=== PATIENT | male | born 1975 ===

== ENCOUNTER 2020-07-29 14:34 | Outpatient (REF) | payer OTHER, SELFPAY ==
[2020-07-29 15:37] LABS: COVID-19 Test Negative (Negative)
== END 2020-07-29 14:35 | disposition home or self-care (01) ==
LOC: HO.LAB 14:34
PROVIDERS: Visit Provider Internal Medicine
DX: Z20.822 Contact with and (suspected) exposure to COVID-19 (principal)
CPT/HCPCS: 36415; 87635; C9803

== ENCOUNTER 2023-07-10 14:55 | Emergency (ER) | payer OTHER, SELFPAY ==
[2023-07-10 14:59] VITALS: BP 179/102; PULSE 99; RESP 20; TEMP 37.2; O2SAT 99; BMI 38.6
--- NOTE | 2023-07-10 15:02 | ED.GENADULT ---
HPI - General Adult General Chief complaint: Allergic Reaction Stated complaint: Allergic reaction Time Seen by Provider: 07/10/23 15:07 Source: patient Mode of arrival: ambulatory Limitations: no limitations History of Present Illness HPI narrative: 48-year-old male history of hypertension, hyperlipidemia, obesity presents with concerns of lower lip swelling that started at 09:00 this morning. Patient reports he is on lisinopril and has been taking it for years. This has never happened to him before. He reports his lower lip feels big and tight. No tingling in the tongue, difficulty swallowing, changes in voice, trouble controlling secretions, chest pain, shortness of breath, nausea, vomiting, abdominal pain. Related Data Allergies Allergy/AdvReac Type Severity Reaction Status Date / Time No Known Allergies Allergy Unverified 01/01/20 15:36 Review of Systems Review of Systems: Constitutional : No Weight loss, No Fever, No Chills, No Fatigue, No Malaise ENT/Mouth : No sore throat, No Rhinorrhea, + lip swelling Eyes: No Eye Pain, No Swelling, No Redness Cardiovascular : No Chest Pain, No SOB, No Dyspnea on Exertion, No Orthopnea, No Edema, No Palpitations Respiratory : No Cough, No Sputum, No Wheezing Gastrointestinal : No Nausea, No Vomiting, No Diarrhea, No Constipation, No abdominal Pain, No Hematochezia, No Melena Genitourinary : No Dysuria, No Urinary Frequency, No Hematuria, Musculoskeletal : No joint pain, No Myalgias, No Joint Swelling Skin : No Skin Lesions, No rash Neuro : No Weakness, No Numbness, No Dizziness, No Headache Psych : No Anxiety/Panic, No Depression All other systems reviewed and are negative Yes all other systems are reviewed and are negative [facility] Past Medical History Attestation statement: The following information was validated with the patient. Source: old records reviewed and nursing notes reviewed Social History Social History Alcohol intake: current Smoked in Last 30 Days: Yes Use of substances other than those prescribed or required for medical reasons: Yes Substance Use Type: Marijuana Advance Directives: No Advance Directives Information Provided: No Physical Exam ED Vital Signs: Vital Signs - 24 hr 07/10/23 18:15 07/10/23 18:19 Temperature 98.2 F 98.2 F Pulse Rate 93 93 Respiratory Rate 16 16 Blood Pressure 144/98 H 144/98 H Pulse Oximetry 96 96 Oxygen Delivery Method Room Air Room Air BMI result Body Mass Index 38.6 vss Appearance: Alert.? Oriented X3.? No acute distress.? Head: Normocephalic, atraumatic, no step-offs or deformities Eyes: Pupils equal, round and reactive to light.? ENT: Pharynx normal.??+ lower lip swelling. No tongue swelling, swelling to posterior pharynx, uvula, tongue. Speaking in full sentences controlling secretions well. Neck: Normal inspection.? Neck supple.? CVS: Normal heart rate and rhythm.? Pulses normal.? Respiratory: No respiratory distress.? Breath sounds normal.? Abdomen: Soft and nontender.? Skin: Skin warm and dry.? Normal skin color.? Normal skin turgor.? Extremities: No lower extremity edema.? No calf ttp. 5/5 strength to bilateral upper and lower extremities Neuro: Oriented X 3.? No motor deficit.? No sensory deficit. CN 2-12 intact Course Course Course Narrative: RME: 48-year-old male presents to the ED for angioedema which began around 09:00. Patient on lisinopril. Patient denies any known allergies. Solu-Medrol Benadryl Pepcid ordered. Patient to be brought to the ED Reevaluation(s) Reevaluation #1: sign out to [facility] [employer]OND [employer]IST[employer] Reevaluation #2: Angioedema remained stable, unchanged despite administration of Solu-Medrol/Benadryl/Pepcid IV. Speaking clear full sentences. No airway compromise. Discussed with patient extensively discontinuation of lisinopril. It is imperative that he contact his primary care doctor tomorrow to arrange for a follow-up appointment as he will need an alternative regimen for management of his hypertension. Discussed worrisome signs and symptoms that would warrant re-evaluation in the emergency department. All questions answered. Stable for discharge. Furthermore patient was evaluated by ED attending Dr. Serna who agrees with plan of care Time: 18:11 Medications Administered Discontinued Medications Generic Name Dose Route Start Last Admin Trade Name Freq PRN Reason Stop Dose Admin Diphenhydramine HCl 50 mg 07/10/23 15:01 07/10/23 15:19 Diphenhydramine Hcl 50 Mg/Ml Vial IVPUSH 07/10/23 15:02 50 mg ONCE ONE Administration Famotidine 20 mg 07/10/23 15:01 07/10/23 15:19 Famotidine/Pf 20 Mg/2 Ml Vial IVPUSH 07/10/23 15:02 20 mg ONCE ONE Administration Methylprednisolone Sodium Succinate 125 mg 07/10/23 15:01 07/10/23 15:19 Methylprednisolone Sod Succ 125 Mg/2 Ml Vial IVPUSH 07/10/23 15:02 125 mg ONCE ONE Administration Medical Decision Making Medical Decision Making MDM Narrative: 48 yo M presents w/ lower lip swelling since 0900 today. On lisinopril PE w/ + lower lip swelling. No tongue swelling, swelling to posterior pharynx, uvula, tongue. Speaking in full sentences controlling secretions well. History and physical exam concerning for EDIN induced angioedema versus allergic reaction. Unlikely anaphylactic reaction, no signs of threat to airway. Plan at this time will give IV meds and monitor. Differential Diagnosis Differential Diagnoses: The differential diagnosis associated with the presentation includes History and physical exam concerning for EDIN induced angioedema versus allergic reaction. Unlikely anaphylactic reaction, no signs of threat to airway. Admission/Observation Consideration of admission/observation: Escalation of care including admission/observation considered possible Chronic Conditions Patient?s care impacted by: Hypertension Critical Care Time Critical Care Time Critical Care Time: Yes Total Critical Care Time: 35 Attestation: I attest to this time spent taking care of the patient, obtaining history, physical, reviewing labs, imaging, speaking to my attending, speaking to specialist. Discharge Plan Discharge Clinical Impression: Angioedema Patient Disposition: Still a Patient Instructions: Angioedema (ED) Additional Instructions: It is important that you stop taking your lisinopril at this time. You need to call your doctor's office tomorrow morning 1st thing to schedule a follow-up appointment. Let them know that you were in the emergency department and you were advised to stop taking your lisinopril due to the swelling. Your primary care doctor will determine what medication changes they prefer for management of your high blood pressure. Return to the emergency department with new or worsening symptoms. Such as fevers, chills, chest pain, shortness of breath, nausea, vomiting, dizziness, headache, vision changes, lethargy In case of emergency call 911 Referrals: Dickson Hinson III, MD [Primary Care Provider] - 2 days Interventions: ED Discharge Assessment Last Done: 07/10/23 18:19 Discharge Date/Time: 07/10/23 18:48
[2023-07-10] MEDS: diphenhydrAMINE HCL 50 MG/ML VIAL IVPUSH (15:19)
[2023-07-10] MEDS: methylPREDNISolone Sod Succ 125 MG/2 ML VIAL IVPUSH (15:19)
[2023-07-10] MEDS: Famotidine/PF 20 MG/2 ML VIAL IVPUSH (15:19)
--- NOTE | 2023-07-10 15:28 | PC.NURSE ---
20gIV placed in the left hand - medication administered per provider order. no sob/wob noted. respirations even and unlabored. pt's airways open/intact. no signs of respiratory distress noted. severe lip swelling noted. effectiveness of medication pending. plan of care ongoing.
--- NOTE | 2023-07-10 17:47 | PC.NURSE ---
lip swelling still noted despite medication administration. airway remains patent. no sob/wob noted. respirations remain even and unlabored. plan of care ongoing.
[2023-07-10 18:15] VITALS: BP 144/98; PULSE 93; RESP 16; TEMP 36.8; O2SAT 96
--- NOTE | 2023-07-10 18:18 | PC.NURSE ---
pt spoke w/ ED provider at this time. pt aware of plan of care in regards to discontinuing lisinopril from medication regimen forever. vss and up to date prior to d/c.
[2023-07-10 18:19] VITALS: BP 144/98; PULSE 93; RESP 16; TEMP 36.8; O2SAT 96
== END 2023-07-10 18:48 | disposition still patient (30) ==
PROVIDERS: Emergency Provider Emergency Medicine; PCP Internal Medicine
DX: L50.0 Allergic urticaria (principal); R22.9 Localized swelling, mass and lump, unspecified
CPT/HCPCS: 96374; 96375; 99284; J1200; J2930

== ENCOUNTER 2024-01-09 11:23 | Emergency (ER) | payer OTHER, SELFPAY ==
--- NOTE | ~2024-01-09 | XR_ITS ---
EXAMINATION: XR HAND, LEFT CLINICAL INFORMATION: Injury to the thumb. COMPARISON: None available. TECHNIQUE: PA, lateral, and oblique views of the left hand. FINDINGS: First digit: There is soft tissue swelling of the thumb. No unexpected radiodense densities identified in the soft tissues. No air is seen in the soft tissues. No visible acute fracture or malalignment. Mild first MCP and CMC joint arthritis. Additional findings: Mild third MCP arthritis. No acute fracture is seen. No erosions. No abnormal soft tissue calcification. XR/XR hand LT min 3V IMPRESSION: Soft tissue swelling of the thumb. No radiographic evidence of acute fracture. No unexpected radiodense foreign bodies identified. Electronically signed by: Pineda Rahman MD 01/09/2024 01:02 PM EDT
[2024-01-09 11:30] VITALS: BP 201/124; PULSE 89; RESP 20; TEMP 37; O2SAT 98; BMI 35.8
--- NOTE | 2024-01-09 11:31 | ED_ITS ---
HPI - Wound/Laceration General Chief Complaint: Wound/Laceration Stated Complaint: l finger lac-work inj Time Seen by Provider: 01/09/24 15:17 Source: patient Mode of arrival: ambulatory Limitations: no limitations History of Present Illness ED Provider: Bertha Patel PA-C HPI narrative: 48 yo male presents with thumb laceration. At 1100 was at work using a machine with a belt, says that his thumb was sucked into the machine, shut off machine and removed thumb. Has avulsed skin at lateral aspect of thumb distally and has 3 cm long, 3 mm wide laceration at medial aspect of thumb with minimal, controlled bleeding. Says that he dressed wound at work, has not cleaned it yet, Tetanus booster was 2 years ago. Says that pain is 5/10 and dull, worse with movement, radiates to wrist. Denies other injury or complaint. He takes Losartan around noon every day, credits high blood pressure to stress from lac. Onset (ago): hour(s) Location: other (Left thumb) Extremity Location: left: hand Place: work Patient tetanus UTD: Yes Context: accidental and other Associated symptoms: pain Treatments prior to arrival: bandage Related Data Previous Rx's ?Medication ?Instructions ?Recorded amoxicillin 875 mg-potassium 1 tab PO BID 10 days #20 tabs 01/09/24 clavulanate 125 mg tablet Allergies Allergy/AdvReac Type Severity Reaction Status Date / Time No Known Allergies Allergy Verified 01/09/24 11:33 Review of Systems 2 Constitutional: Constitutional: Reports no additional constitutional complaints, Denies chills, Denies fever(s) and Denies night sweats Eyes: Eyes: Reports no additional eye complaints, Denies blurry vision, Denies change in vision, Denies diplopia, Denies eye discharge, Denies loss of vision and Denies eye pain ENT: Denies dizziness Cardiovascular: Cardiovascular: Reports no additional cardiovascular complaints, Denies chest pain, Denies lightheadedness, Denies Loss of Consciousness and Denies dyspnea Respiratory: Respiratory: Reports no additional respiratory complaints and Denies dyspnea Gastrointestinal: Gastrointestinal: Reports no additional gastrointestinal complaints, Denies abdominal pain, Denies melena, Denies hematochezia, Denies change in bowel habits and Denies change in stool character Genitourinary: Genitourinary: Reports no additional male genitourinary complaints, Denies hematuria, Denies oliguria, Denies difficulty urinating, Denies dysuria, Denies urinary frequency, Denies urinary hesitancy, Denies urinary incontinence and Denies urinary urgency Musculoskeletal: Musculoskeletal: Reports deformity Comments: As stated in HPI Integumentary/Breasts: Skin/Breast: Reports as per HPI, Reports skin pain and Reports wounds Neurologic: Denies dizziness and Denies loss of vision Psychiatric: Psychiatric: Reports no additional psychiatric complaints Endocrine: Endocrine: Reports no additional endocrine complaints Hematologic/Lymphatic: Hematologic/Lymphatic: Reports no additional hematologic/lymphatic complaints Allergic/Immunologic: Allergic/Immunologic: Reports no additional allergic/immunologic complaints [facility] Social History Social History Alcohol intake: current Substance Use Type: Marijuana Advance Directives: No Advance Directives Information Provided: No Physical Exam 2 Vital Signs: Vital Signs: Last Vital Signs Temp 98.6 F 01/09/24 11:30 Pulse 89 01/09/24 11:30 Resp 20 01/09/24 11:30 BP 201/124 H 01/09/24 11:30 Pulse Ox 98 01/09/24 11:30 O2 Del Method Room Air 01/09/24 11:30 BMI result Body Mass Index 35.8 Credits HTN to injury, states he took Losartan at noon. Const: General: cooperative, no acute distress, alert and awake Nutritional Appearance: well nourished Orientation/consciousness: patient oriented x3 Limitations: no limitations HEENT: Head: Yes normal to inspection and Yes atraumatic Ears: hearing grossly normal bilaterally and external ears normal General nose exam: Normal external nose present, no nasal discharge noted and no epistaxis Face and sinus: Yes normal facial exam, No abrasion and No laceration Mouth: Normal oral and palatal mucosa present, no drooling and no muffled voice Eyes: General: appearance normal, both eyes and all related structures P eriorbital: periorbital findings normal Eyelids: Yes eyelids normal C onjunctivae: conjunctivae normal Pupils: Equal, round and reactive pupils present EOM: EOMs intact bilaterally Neck: Neck: Yes normal visual inspection, Yes full ROM and Yes no lymphadenopathy Chest: Chest palpation & inspection: normal inspection of the chest Resp: Effort & Inspection: normal respiratory effort and able to speak in complete sentences GI: Inspection: Yes normal to inspection Neuro: General: patient oriented x3 and moves all extremities Cranial nerves: Yes Equal, round and reactive pupils present Cognition (Neuro): n ormal cognition Extrem: Other: General: Yes full ROM and Yes capillary refill normal Left upper extremity: normal capillary refill and hand Details: normal capillary refill, neuromotor exam normal, neurosensory exam normal, tendon exam normal, tenderness, abrasion, laceration and puncture wound Hand/finger images: 1. Laceration 2. Avulsed skin Psych: Appearance: grossly normal Mental Status: mental status grossly normal Affect: normal affect Attitude: cooperative Thought process: N ormal thought process present Thought content: Normal thought content present Insight: Good insight present (Psych) Course Course Course Narrative: This is a Rapid Medical Exam performed in triage by Ayaka Sena PA-C. Full HPI, ROS and PE to be performed by primary ED provider. 48 yo M w/pmhx HTN, asthma, anxiety presenting to the ED c/o left thumb laceration s/p hand getting sucked into flex pipe polisher. Tetanus UTD. Left hand dominant. PE: HTNsive likekly from pain, takes BP meds at 12noon. 4cm deep laceration noted to volar aspect L thumb, active bleeding. +skin avulsion. NV intact Plan: XR, wound repair Medications Administered Discontinued Medications Generic Name Dose Route Start Last Admin Trade Name Freq PRN Reason Stop Dose Admin Lidocaine HCl 15 ml 01/09/24 15:32 01/09/24 16:40 Lidocaine Hcl 1 % Mpf 5 Ml Vial SUBCUT 01/09/24 15:33 15 ml ONCE ONE Administration Medical Decision Making Medical Decision Making MDM Narrative: 48 yom with history of anxiety, asthma, and hypertension presents with a laceration to his left thumb. Was using a machine with a belt at work when his left thumb was sucked into the machine. Avulsed skin present at lateral edge of left thumb, laceration measuring 3 cm present to the medial aspect of left thumb. Controlled bleeding, PMS intact. Tetanus is up to date. Patient has an elevated blood pressure however, he states it is due to stress from the injury and not taking his losartan until noon. Avulsed skin that could not be appropriately laid down was removed and the laceration was sutured and dressed, per procedure note - without incident. Patient's PMS was intact prior to and after repair. I answered all questions asked by the patient. I stressed the importance of the patient taking his medication as directed (either prescribed or as the over the counter packaging recommends). I stressed the importance of the patient following up with his primary care provider, [facility], and the wound center. I stressed the importance of the patient returning to the emergency department immediately if his symptoms were to worsen or if he were to develop any dizziness, shortness of breath, difficulty breathing, chest pain, blurry vision, loss of vision, nausea, vomiting, abdominal pain, fever, chills, back pain, or any other complaints. Patient verbalized agreement and understanding with this treatment plan and discharge. Differential Diagnosis Differential Diagnoses: The differential diagnosis associated with the presentation includes Laceration Abrasion Avulsion Admission/Observation Consideration of admission/observation: Escalation of care including admission/observation considered Patient would have been admitted to the hospital had his work up had any findings where hospital admission was appropriate and his clinical presentation warranted hospital admission. Independent Interpretation I performed an independent interpretation of an: Plain X-Ray Interpretation: My interpretation is in agreement with the radiologist's impression of this imaging study. L EXAMINATION: XR HAND, LEFT CLINICAL INFORMATION: Injury to the thumb. COMPARISON: None available. TECHNIQUE: PA, lateral, and oblique views of the left hand. FINDINGS: First digit: There is soft tissue swelling of the thumb. No unexpected radiodense densities identified in the soft tissues. No air is seen in the soft tissues. No visible acute fracture or malalignment. Mild first MCP and CMC joint arthritis. Additional findings: Mild third MCP arthritis. No acute fracture is seen. No erosions. No abnormal soft tissue calcification. XR/XR hand LT min 3V IMPRESSION: Soft tissue swelling of the thumb. No radiographic evidence of acute fracture. No unexpected radiodense foreign bodies identified. Electronically signed by: Pineda Rahman MD 01/09/2024 01:02 PM EDT RP Dictated By: Pineda Rahman MD Signed By: Electronically signed by Pineda Rahman MD 01/09/24 1302 Radiology Impression Discussion of test interpretation with radiology: I have reviewed the radiologist's reading. Prescription Management I considered prescription management with: Antibiotic (patient prescribed a prophylactic antibiotic) Chronic Conditions Patient?s care impacted by: Hypertension Procedures Laceration Laceration 1: Site: other (thumb) Side (If applicable): left Size (cm): 3 Description: irregular Depth: simple, single layer Local Anesthetic: lidocaine 1% Amount of anesthesia used (mL): 5 Pre-repair: wound explored, irrigated extensively and deep structures intact Skin layer closed with: other (prolene) Size (cm): 5-0 Number of sutures: 5 Technique: simple, interrupted Discharge Plan Discharge Clinical Impression: Laceration, Avulsion of skin Patient Disposition: Home, Self-Care Instructions: Care For Your Stitches (DC), Skin Avulsion (ED) Additional Instructions: Given this was a work place injury, you should follow up with work connection. Given the extent of your injury - you should follow up with the wound center to ensure the avulsed side of your thumb heals well. Do NOT soak the affected area. Have your sutures removed in 7-10 days. Take your antibiotic as prescribed. Follow up with your primary care provider. Return to the emergency department immediately if your symptoms worsen or if you develop any dizziness, shortness of breath, difficulty breathing, chest pain, blurry vision, loss of vision, nausea, vomiting, abdominal pain, fever, chills, back pain, or any other complaints. Prescriptions: New amoxicillin-pot clavulanate 875-125 mg tablet 1 tab PO BID 10 Days Qty: 20 0RF [place]: [facility] [place] [facility] [place] Group] (Given the extent of the skin avulsion of your thumb - you should follow up with the wound center to ensure it heals appropriately.) [facility] [Provider Group] (Given this was a work place injury, you should follow up with work connection.) Dickson Hinson III, MD [Primary Care Provider] - Stand Alone Forms: Work/School Release Discharge Date/Time: 01/09/24 16:47 Print Language: Japanese
[2024-01-09] MEDS: Lidocaine HCl 1 % MPF 5 ML VIAL 15 ML SUBCUT (16:40)
== END 2024-01-09 16:47 | disposition home or self-care (01) ==
PROVIDERS: Emergency Provider Student in an Organized Health Care Education/Training Program; PCP Internal Medicine
DX: S61.012A Laceration without foreign body of left thumb without damage to nail, initial encounter (principal); W31.82XA Contact with other commercial machinery, initial encounter; Y93.89 Activity, other specified; Y92.59 Other trade areas as the place of occurrence of the external cause; Y99.0 Civilian activity done for income or pay
CPT/HCPCS: 12002; 73130; 99281; 99284